=== PATIENT | male | born 1990 | race Caucasian/White ===

== ENCOUNTER 2019-06-07 06:16 | Emergency (ER) | payer SELFPAY ==
[~2019-06-07] VITALS: Ht 177.8 cm; Wt 91.6 kg
--- NOTE | 2019-06-07 06:41 | PHYS DOC ---
Past History Past Medical History: No Pertinent History Past Surgical History: No Surgical History Smoking: Cigarettes Alcohol Use: Occasionally Drug Use: None Adult General Chief Complaint Chief Complaint: CHEST PAIN HPI HPI Patient is a 28-year-old male who presents with chest pain. The chest pain started at 10 PM last night and woke him from his sleep. It was a sharp pain in the middle of the sternum. The pain is worse when he takes a deep breath. He feels slightly short of breath and has some diaphoresis. He says he had shortness of air with walking this morning. 2 hours ago the chest pain started radiating down to his right arm into his hand. He is also having nausea without vomiting and cough. He has a history of PTSD and is feeling anxious. He has been doing a lot of shoveling and raking at work lately and is right hand dominant. Denies history or family history of PE/DVT. Denies calves tenderness. Denies trauma. Reports only cardiac risk factor of smoking. Review of Systems Review of Systems Constitutional: Denies fever or chills Eyes: Denies redness or eye pain HENT: Denies nasal congestion or sore throat Respiratory: Reports cough and shortness of breath Cardiovascular: Reports chest pain, denies palpitations GI: Denies abdominal pain or vomiting, reports nausea : Denies dysuria or hematuria Musculoskeletal: Denies back pain, reports right shoulder pain Integument: Denies rash or skin lesions Neurologic: Denies headache, focal weakness or sensory changes Complete systems were reviewed and found to be within normal limits, except as documented in this note. Family History Family History His father had HLD, HTN Allergies Allergies Allergies Coded Allergies Type Severity Reaction Last Updated Verified No Known Drug Allergies 06/07/19 No Physical Exam Physical Exam Constitutional: Well developed, well nourished, no acute distress, non-toxic appearance HENT: Normocephalic, atraumatic, oropharynx moist Eyes: PERRL, conjunctiva normal, no discharge Neck: Normal range of motion, no tenderness, supple Cardiovascular: Heart rate normal, regular rhythm Lungs & Thorax: Bilateral breath sounds clear to auscultation, no wheezing, reproducible pain on palpation at right costochondral junction. Abdomen: Soft, no tenderness Skin: Warm, dry, no erythema, no rash, scar above right clavicle Back: No tenderness, no CVA tenderness Extremities: No tenderness, ROM intact, no edema, shoulder joint without laxity Neurologic: Alert and oriented X 3, normal motor function, normal sensory function, no focal deficits noted Psychologic: Affect normal, judgement normal, mood normal Current Patient Data Vital Signs Vital Signs Date Time Temp Pulse Resp B/P (MAP) Pulse Ox O2 Delivery O2 Flow Rate FiO2 06/07/19 06:21 98.4 71 22 99 Room Air EKG EKG 06/07/19 at 0628: Normal Sinus Rhythm at [address] segment elevation. QT 424. [] Radiology/Procedures Radiology/Procedures PROCEDURE: CHEST PA & LATERAL CHEST PA LATERAL CLINICAL INDICATION: Chest pain. COMPARISON: None FINDINGS: Heart is normal in size. Lungs are clear. No pneumothorax or pleural effusion. Status post ORIF of right clavicular fracture. Visualized bony thorax within normal limits. IMPRESSION: No acute pulmonary process. Electronically signed by: Dayne Cloud DO (06/07/2019 7:31 AM) [facility] [] Course & Med Decision Making Course & Med Decision Making Pertinent Imaging studies reviewed. (See chart for details) Mr. Thompson is a 28 year old male who presents with chest pain. The pain started last night and is a sharp midsternal pain that is worse with deep inhalation. This morning he was short of breath and the pain started radiating down his right arm. He reports anxiety. On physical exam lung and heart sounds are normal. There is reproducible pain upon palpation of costochondral junction. EKG and CXR show now significant abnormalities. Low cardiac risk factors, PERC negative. Clinically the chest pain is most likely caused by costochondritis and an anxiety attack. He is treated with dexamethasone, and Toradol in the ED and given prescriptions for prednisone, and Ativan. Patient stable for discharge with outpatient follow-up with PCP. Discussed findings and plan with patient, who acknowledge understanding and agreement. Dragon Disclaimer Dragon Disclaimer This electronic medical record was generated, in whole or in part, using a voice recognition dictation system. Departure Departure: Impression: Primary Impression: Costochondral chest pain Additional Impression: Anxiety attack Disposition: 01 HOME, SELF-CARE Condition: STABLE Referrals: PCPFLAQUITA (PCP) Patient Instructions: Anxiety and Panic Attacks, [id number], Costochondritis, [id number] Scripts Prednisone (PREDNISONE) 20 Mg Tablet 2 TAB PO DAILY for costochondritis for 4 Days, #8 TAB Prov: ESPINALKEATON Lacy 06/07/19 Lorazepam (ATIVAN) 1 Mg Tablet 0.5 MG PO TID PRN PRN for ANXIETY / AGITATION, #6 TAB Prov: TEDDYKEATON Lacy 06/07/19 PERC Rule for PE PERC Rule for PE Response (Comments) Value Age > 50: No 0 HR > 100: No 0 Sa02 on room air <95%: No 0 Unilateral leg swelling: No 0 Hemoptysis: No 0 Recent surgery or trauma: No 0 Prior PE or DVT: No 0 Hormone use: No 0 Total 0 HEART Score for Chest Pain PTs The HEART Score for CP Pts HEART Score for Chest Pain: HEART Score for Chest Pain Response (Comments) Value History Slighlty/Non-Suspicious 0 ECG Normal 0 Age < 45 0 Risk Factors 1 or 2 Risk Factors 1 Total 1 Risk Factors: Risk Factors: DM, Current or recent (<one month) smoker, HTN, HLP, family history of CAD, obesity. Risk Scores: Score 0 - 3: 2.5% MACE over next 6 weeks - Discharge Home Score 4 - 6: 20.3% MACE over next 6 weeks - Admit for Clinical Observation Score 7 - 10: 72.7% MACE over next 6 weeks - Early Invasive Strategies Problem Qualifiers ESPINALKEATON REDDY Bambi GALAVIZ Jun 07, 2019 06:41
[2019-06-07] MEDS ORDERED: PRED20TA PO (06:59)
[2019-06-07] MEDS ORDERED: LORA-254 PO (06:59)
[2019-06-07] MEDS ORDERED: KETOROLAC 30 MG/ML VIAL. IM ONE (07:00)
[2019-06-07] MEDS ORDERED: DEXAMETHASONE 4 MG TABLET PO ONE (07:00)
[2019-06-07 07:25] VITALS: BP 140/82
[2019-06-07] MEDS ORDERED: KETOROLAC 15 MG/ML VIAL. IV ONE (07:30)
--- NOTE | 2019-06-07 07:34 | RAD ---
CHEST PA LATERAL CLINICAL INDICATION: Chest pain. COMPARISON: None FINDINGS: Heart is normal in size. Lungs are clear. No pneumothorax or pleural effusion. Status post ORIF of right clavicular fracture. Visualized bony thorax within normal limits. IMPRESSION: No acute pulmonary process. Electronically signed by: Dayne Cloud DO (06/07/2019 7:31 AM) [facility]
--- NOTE | 2019-06-08 06:48 | EKG ---
[address] [address] Test Date: 2019-06-07 Test Time: 06:28:32 Pat Name: CIRO TARANGO Department: Room: Gender: M [employer] Supervisor: BECKY : 1990 Requested By: KEATON ESPINAL Order Number: [id number] Reading MD: Measurements Intervals [place] Rate: 63 P: 31 ME: 128 QRS: 59 QRSD: 88 T: 31 QT: 424 QTc: 437 Interpretive Statements SINUS RHYTHM QRS(T) CONTOUR ABNORMALITY CONSIDER ANTEROLATERAL MYOCARDIAL DAMAGE POSSIBLY ABNORMAL ECG RI6.01 No previous ECG available for comparison
== END 2019-06-07 07:28 | disposition home or self-care (01) ==
LOC: ER 06:16
DX: M94.0 Chondrocostal junction syndrome [Tietze] (principal); F41.9 Anxiety disorder, unspecified; F17.210 Nicotine dependence, cigarettes, uncomplicated
CPT/HCPCS: 71046; 93005; 96374; 99284; J1885; J8540